=== PATIENT | female | born 1995 | race Caucasian/White ===

== ENCOUNTER 2017-07-11 12:48 | Emergency (ER) | payer BC, SELFPAY ==
[2017-07-11 12:53] VITALS: BP 121/74; PULSE 110; RESP 16; TEMP 36.3; O2SAT 100; BMI 21.4
--- NOTE | 2017-07-11 13:08 | EKG12_ITS ---
Test Reason : CP Blood Pressure : / mmHG Vent. Rate : 102 BPM Atrial Rate : 102 BPM P-R Int : 120 ms QRS Dur : 070 ms QT Int : 338 ms P-R-T Axes : 069 048 061 degrees QTc Int : 440 ms Sinus tachycardia Low voltage QRS (limb leads) Confirmed by ALLYSON ADAMS, ANDREW ([id number]), medical editor SOFI GRAJEDA ([id number]) on 07/14/2017 12:55:23 PM Referred By: JAVY Confirmed By:ANDREW VALADEZ MD
[2017-07-11 13:28] LABS: Absolute Lymphocyte Count 2.08 X10^3/ul (0.83-4.51); Absolute Neutrophil Count 4.9 X10^3/uL (2.0-7.7); Basophil# 0.07 X10^3/uL; Basophil% 0.9 % (0-1); Eosinophil# 0.06 X10^3/uL; Eosinophils% 0.8 % (0-5); Hematocrit 38.3 % (37-47); Hemoglobin 13.8 g/dl (12.0-15.0); Lymphocyte # 2.08 X10^3/ul (4.0); Lymphocyte % 26.8 % (19-41); Mean Corpuscular Hgb 31.5 pg (27.0-32.0); Mean Corpuscular Volume 87.4 fL (81-99); Mean Platelet Vol. 10.8 fl (6.2-12.0); Monocyte% 7.7 % (0-10); Neutrophil # 4.93 X10^3/uL (2.7-7.7); Neutrophil % 63.7 % (47-70); Platelet Count 298 K/mm3 (150-450); RBC Distribution Width CV 11.8 % (11.6-14.6); RBC Distribution Width SD 37.1 fl (35.1-43.9); Red Blood Count 4.38 M/mm3 (4.2-5.4); White Blood Count 7.8 K/mm3 (4.4-11.0)
[2017-07-11 13:32] LABS: POSITIVE COUNT NO; POSITIVE DIFFERENTIAL NO; POSITIVE MORPHOLOGY NO
[2017-07-11 14:14] LABS: Anion Gap 9 (5-15); BUN 10 mg/dL (7-18); BUN/Creat Ratio 11.5 RATIO (10-20); Calcium,Total 9.3 mg/dL (8.5-10.1); Chloride 106 mmol/L (98-107); Creatinine, Serum 0.87 mg/dL (0.55-1.02); EST Glomerular Filtration Rate 87 mL/min (>60); Est Glom Filt Rate - Afr Amer 105 mL/min (>60); Estimated Creatinine Clearance 88.33 ml/min; Glucose 92 mg/dL (74-106); Potassium 3.4 mmol/L (3.5-5.1); Sodium Level 140 mmol/L (136-145)
--- NOTE | 2017-07-11 14:45 | RAD_ITS ---
STUDY: X-RAY CHEST REASON FOR EXAM: Female, 21 years old. Chest pain. TECHNIQUE: Single AP portable view of the chest. COMPARISON: None. FINDINGS: Hyperinflation. The lungs are clear. There is no demonstrated pleural abnormality. Normal size heart. Normal mediastinum and wesley. Normal visualized pulmonary arteries. Normal visualized aortic arch and descending thoracic aorta. Normal visualized thoracic spine. Normal visualized ribs, clavicles, and shoulders. There is no demonstrated abnormality of the visualized soft tissue structures of the upper abdomen. RAD/Chest 1 View (Portable) IMPRESSION: Hyperinflation. The lungs are clear. Electronically Signed: Travis Pollard MD at 15:11 EST Tel [phone], Service support ,
[2017-07-11 15:51] VITALS: O2SAT 98
[2017-07-11 15:52] VITALS: BP 116/70; PULSE 82; RESP 16; O2SAT 97
--- NOTE | 2017-07-11 16:56 | ED.VISSUMM ---
- ER Visit Summary Date of Service: 07/11/17 Chief Complaint: Chest pain describes a burning sensation with apparent shortness of breath last night at onset. History of Present Illness: The patient is a 21 F with burning chest pain that she localizes to the subxiphoid epigastric area. She does complain of intermittent burning sensation when lying flat. That symptom has been present for 1-2 weeks. She denies any hematemesis, melena hematochezia. She denies history of reflux or hiatal hernia. She has not noted a difference depending on the food that she eats. Food does make it worse. She denies fever, chills night sweats. She has ocular, visual or auditory symptoms. She denies any urologic symptoms or gynecologic symptoms. She denies skin lesions. She is a non-smoker. She is presently on her menses. Physical Examination: Vital signs are remarkable for a heart rate of 116 and respiratory 22. Head is atraumatic normocephalic. Pupils are equal round reactive. Extraocular muscles are intact. TMs are pearly white with landmarks noted. Nares patent with no drainage. Posterior pharynx without erythema or exudate. Uvula is midline. There is no dysphonia or dysphasia. Trachea is midline. There is no stridor with auscultation of the neck. Heart is regular without murmur, gallop or rub. S1 and S2 are normal. Lungs are clear to auscultation with good movement of air bilaterally. She has no repeatable chest pain. Abdomen is remarkable epigastric pain. Negative Marcial sign. No paraspinal megaly. No guarding or peritoneal findings. No CVA tenderness noted. There is no asymmetry, swelling, discoloration, leg vein distention, palpable cords or tenderness along the distribution of the deep venous system. Test Results: E, chest and blood work was obtained per nurse protocol. EKG reveals a sinus tachycardia rate of 102. Chest x-ray reveals no acute process. Blood work is unremarkable. Emergency Department Course and Treatment: A call was initiated because of patient's symptoms and delay. Based on my history and physical findings it is my pleasure. Patient has reflux. She was given a GI cocktail with significant improvement. Treatment Plan: Prescription for Protonix and appropriate home-going instructions Disposition: Discharged home with spouse Impression: Chest/epigastric pain secondary to reflux This note was generated with CheckInPageation software. It may contain incorrect words, spelling, and punctuation that were not noted in review of the chart prior to signing ED Disposition - Plan for ED Patient: Disposition: Home or Assisted Living Chief Complaint: Chest Pain Instructions: ED GERD Prescriptions: Pantoprazole Sodium [Protonix] 40 mg PO DAILY #30 tab Referrals: Care Physician,No Primary [Primary Care Provider] - Martin Del Rio MD [STAFF PHYSICIAN] - 1-2 Weeks Additional Instructions: Since she did not have a primary care physician you were referred to Dr. Martin Del Rio.
[2017-07-11 17:10] VITALS: BP 118/71; PULSE 72; RESP 16; O2SAT 99
== END 2017-07-11 17:11 | disposition home or self-care (01) ==
PROVIDERS: Emergency Provider Emergency Medicine
DX: R07.89 Other chest pain (principal); R10.13 Epigastric pain; K21.9 Gastro-esophageal reflux disease without esophagitis; R00.0 Tachycardia, unspecified; R06.00 Dyspnea, unspecified
CPT/HCPCS: 71045; 80048; 84484; 85025; 93005; 99284; A4216

== ENCOUNTER 2023-10-30 11:30 | Emergency (ER) | payer OTHER, SELFPAY ==
[2023-10-30 11:31] VITALS: BP 123/89; PULSE 94; RESP 14; TEMP 36.1; O2SAT 100; BMI 25.7
--- NOTE | 2023-10-30 11:59 | EX.ED.DYSGE1 ---
HPI <JUAN FRANCISCO Tomlinson - Last Filed: 10/30/23 14:06> History of Present Illness Chief Complaint: Dizziness Narrative Narrative: Patient is a 27-year-old female with history of PCOS, anxiety, who does not take any control, presents to the emergency department with feeling of near syncope while at work today. Patient's when she woke up today she did not feel well. Patient states she had a heavier menstrual cycle than normal. Patient works at a doctor's office, had to sit down because she started getting tunnel vision and feeling sweaty. She then went home, and continue to have hot flashes. Patient states she never actually passed out however she felt she was going to. She denies any chest pain shortness of breath. Denies any recent travel, recent surgeries, blood clots in legs or lungs. Patient states she does have history of anxiety and thinks that is not helping. [facility] <JUAN FRANCISCO Tomlinson - Last Filed: 10/30/23 14:06> [facility] Medical History (Updated 10/30/23 @ 14:06 by JUAN FRANCISCO Tomlinson) Anxiety Home Medications ?Medication ?Instructions ?Recorded ?Last Taken ?Type Control Pill 1 tab PO DAILY 08/10/15 Unknown History pantoprazole 40 mg tablet,delayed 40 mg PO DAILY #30 tabs 07/11/17 Unknown Rx release Allergy/AdvReac Type Severity Reaction Status Date / Time No Known Allergies Allergy Verified 10/30/23 11:31 Social History Smoking Status: Never smoker ROS <JUAN FRANCISCO Tomlinson - Last Filed: 10/30/23 14:06> ROS ED ROS Narrative Constitutional: Negative for fever, chills, weight loss, weakness. Positive for diaphoresis Eyes: Negative for vision loss, vision change, double vision ENT: Negative for any sore throat, ear pain, congestion Cardiovascular: Negative for any chest pain, tightness, palpitations Respiratory: Negative for any cough, sputum production, hemoptysis, dyspnea, dyspnea on exertion, orthopnea Gastrointestinal: Negative for any abdominal pain, nausea, vomiting, diarrhea, constipation, blood in stool, blood in vomit : Negative for any urinary frequency, dysuria, retention, blood in urine Muscle skeletal: Negative for any neck pain, back pain Neurological: Negative for any headache, syncope, dizziness. Positive for near syncope Skin: Negative for any rashes, itching, abrasions, lacerations Psychiatric: Negative for any depression, anxiety, stress, suicidal ideation, homicidal ideation Hematologic: Negative for any excessive bruising, easy bleeding EXAM <JUAN FRANCISCO Tomlinson - Last Filed: 10/30/23 14:06> Physical Exam Narrative Exam Narrative: Vital signs reviewed. Patient appears to be anxious, vital signs are stable. HEET: Head normocephalic atraumatic, TMs clear bilaterally. Posterior pharynx is clear, moist mucous membranes. Nares clear bilaterally. Neck: Supple with no lymphadenopathy or tenderness. No signs of meningismus. Cardiac: Regular rate and rhythm no murmurs gallops or rubs, equal peripheral pulses bilaterally. Respiratory: Lungs clear to auscultation bilaterally. No chest tenderness. Abdomen: Soft, nontender, nondistended. No abdominal bruit or pulsatile masses. No hepatosplenomegaly Extremities: No peripheral edema, no signs of gross trauma or deformity. Active full range of motion of all extremities. Neuro: Cranial nerves II through XII intact, no focal neurological deficits. Skin: Clean dry and intact with no rash, purpura, petechiae, vesicles or pustules. Backs/flank: No CVA tenderness, no midline spinal tenderness, no deformity. Psych: Normal mood and affect. No SI, HI or acute psychosis. Const Vital Signs: 10/30/23 11:31 10/30/23 11:54 Temperature 97 F L Temperature Source Temporal Pulse Rate 94 Respiratory Rate 14 Respiratory Effort Normal Non-Labored Respiratory Pattern Normal Blood Pressure 123/89 H Blood Pressure Mean 100 Pulse Ox 100 Oxygen Delivery Method Room Air Positive well nourished and well developed General Appearance ED: well developed <Dr. Aubrey Puentes DO - Last Filed: 10/30/23 14:13> Physical Exam Const Vital Signs: 10/30/23 11:31 10/30/23 11:54 Temperature 97 F L Temperature Source Temporal Pulse Rate 94 Respiratory Rate 14 Respiratory Effort Normal Non-Labored Respiratory Pattern Normal Blood Pressure 123/89 H Blood Pressure Mean 100 Pulse Ox 100 Oxygen Delivery Method Room Air MDM <JUAN FRANCISCO Tomlinson - Last Filed: 10/30/23 14:06> MDM Lab Data Labs: Laboratory Results - last 24 hr 10/30/23 10/30/23 12:15 13:15 Sodium 137 Potassium 3.4 L Chloride 106 Carbon Dioxide 23.0 Anion Gap 8 BUN 8 Creatinine 0.79 Estim Creat Clear Calc 105.24 Est GFR (MDRD) Af Amer 111 Est GFR (MDRD) Non-Af 92 BUN/Creatinine Ratio 10.1 Glucose 96 Calcium 9.4 Troponin I High Sens < 3 L Serum , Qual NEGATIVE Urine Color Yellow Urine Clarity Clear Urine pH 8.0 Ur Specific [place] 1.010 Urine Protein Negative Urine Glucose (UA) Normal Urine Ketones 15 H Urine Occult Blood 50 H Urine Nitrite Negative Urine Bilirubin Negative Urine Urobilinogen Normal Ur Leukocyte Esterase Negative Urine RBC 0-5 SEEN Urine WBC 0 SEEN Ur Squamous Epith Cells 0 SEEN Urine Bacteria 0 SEEN Urine Mucus 0 SEEN Radiography Diagnostic Testing: Clinical Impression(s) from Imaging Studies Chest X-Ray 10/30/23 12:45 IMPRESSION: No acute abnormalities present. Electronically Signed: Travis Pollard MD at 13:09 EDT , EKG Normal sinus rhythm: Attestation: I personally reviewed and interpreted this EKG as follows: Interpretation: Sinus Rhythm Comments: Normal sinus rhythm, rate 92 bpm, [place] interval 126 ms, QRS duration 76 ms, no acute ST elevation, no acute infarct noted. Treatment and Re-Evaluation :: Differential diagnosis includes however is not limited to: , anxiety, near syncope, arrhythmia, pulmonary embolus, ACS or TX Patient appears to be in no obvious distress, patient's vital signs are stable, patient appears nontoxic. Presenting to the emergency department with near syncope. Patient is PERC negative, I have low suspicion for any pulmonary embolus. Patient's chest x-ray shows no acute abnormality. Patient's laboratory values showed a normal CBC which I saw on her iPhone. Patient's chemistries were unremarkable, patient's not , urinalysis was negative for infection, patient's troponin was negative. At this time, I do believe the patient suffering more of a vagal response. I have low suspicion for any acute ACS TX or PE. EKG was unremarkable. I do believe the patient be stable for discharge. Patient will receive 0.5 mg of Ativan here. She will follow-up outpatient. If she gets worse she will return here. All questions answered stable for discharge. <Dr. Aubrey Puentes, DO - Last Filed: 10/30/23 14:13> [facility] History & Record Review Discussion w/independent historian: Patient and Significant other Lab Data Attestation: I reviewed the patient's lab results. Labs: Laboratory Results - last 24 hr 10/30/23 10/30/23 12:15 13:15 Sodium 137 Potassium 3.4 L Chloride 106 Carbon Dioxide 23.0 Anion Gap 8 BUN 8 Creatinine 0.79 Estim Creat Clear Calc 105.24 Est GFR (MDRD) Af Amer 111 Est GFR (MDRD) Non-Af 92 BUN/Creatinine Ratio 10.1 Glucose 96 Calcium 9.4 Troponin I High Sens < 3 L Serum , Qual NEGATIVE Urine Color Yellow Urine Clarity Clear Urine pH 8.0 Ur Specific [place] 1.010 Urine Protein Negative Urine Glucose (UA) Normal Urine Ketones 15 H Urine Occult Blood 50 H Urine Nitrite Negative Urine Bilirubin Negative Urine Urobilinogen Normal Ur Leukocyte Esterase Negative Urine RBC 0-5 SEEN Urine WBC 0 SEEN Ur Squamous Epith Cells 0 SEEN Urine Bacteria 0 SEEN Urine Mucus 0 SEEN Radiography Diagnostic Testing: Clinical Impression(s) from Imaging Studies Chest X-Ray 10/30/23 12:45 IMPRESSION: No acute abnormalities present. Electronically Signed: Travis Pollard MD at 13:09 EDT Reading Location ID and State: [id number] , Service support , Treatment and Re-Evaluation :: Differential diagnosis includes however is not limited to: , anxiety, near syncope, arrhythmia, pulmonary embolus, ACS or TX Patient appears to be in no obvious distress, patient's vital signs are stable, patient appears nontoxic. Presenting to the emergency department with near syncope. Patient is PERC negative, I have low suspicion for any pulmonary embolus. Patient's chest x-ray shows no acute abnormality. Patient's laboratory values showed a normal CBC which I saw on her iPhone. Patient's chemistries were unremarkable, patient's not , urinalysis was negative for infection, patient's troponin was negative. At this time, I do believe the patient suffering more of a vagal response. I have low suspicion for any acute ACS TX or PE. EKG was unremarkable. I do believe the patient be stable for discharge. Patient will receive 0.5 mg of Ativan here. She will follow-up outpatient. If she gets worse she will return here. All questions answered stable for discharge. I have personally performed a face to face assessment of the patient and have reviewed the NIRU Note. I performed a substantive portion of the visit including all aspects of the following. My pisano findings include: History is 27-year-old female states that she has been having intermittent episodes lasting about 15 seconds where she becomes very hot has tingling in extremities and feels like she is going to have a syncopal episode. She denies any chest pain or dyspnea. She denies any palpitations. This is never happened to her before. She denies any vomiting diarrhea nausea or pain/cramping. This happened at work she had a CBC drawn which she has results of. She is not significantly anemic. Patient has been taking TheraFlu but does not know exactly what all is in it/which style. Exam is patient is tachycardic. She appears anxious. Otherwise has a fairly benign exam Medical Decison Making EKG shows a sinus rhythm. She has had no events on the monitor. She has stated that she has had several episodes while she has been here. My independent interpretation of the chest x-ray is no acute process. Patient will be discharged home. For her anxiety give her a small amount of Ativan here. I did recommend evaluating the TheraFlu at home and seeing if any of the components could potentially have's some of the side effects with them. Patient return if worsening or concerns Discharge Plan Triage Chief Complaint: Dizziness ED Midlevel Provider: Olvin Garcia ED Provider: Aubrey Puentes Dx/Rx/DC Orders Clinical Impression: Near syncope, Anxiety Instructions: Dizziness Fainting Causes, ED Near-Fainting, Uncertain Cause Prescriptions: No Action Control Pill 1 tab PO DAILY pantoprazole 40 MG tablet 40 mg PO DAILY Qty: 30 0RF Primary Care Provider: Rolando Caldwell Referrals: Care Physician,No Primary [Non-Staff] - Activity Restrictions/Additional Instructions: Please follow-up. For any worsening symptoms please return here. Print Language: Bulgarian Disposition Disposition: Home, Self Care
[2023-10-30] MEDS: 0.9% Normal Saline (1000mL) 1,000 ML 999 ML IV (12:36)
[2023-10-30 12:44] LABS: Internal QC Validated? YES +Cl - CLEAR BKGD; Pregnancy, Serum, hCG Quali. NEGATIVE Negative
--- NOTE | 2023-10-30 12:45 | RAD_ITS ---
STUDY: X-RAY CHEST REASON FOR EXAM: Female, 27 years old. Heart and cold sweats. Dizziness. TECHNIQUE: PA and lateral views of the chest. COMPARISON: Comparison is made with prior study May 10, 2018. FINDINGS: EKG electrodes are seen. The lungs are clear and expanded. Scattered calcified granulomas. There is no demonstrated pleural abnormality. Normal size heart. Normal mediastinum and wesley. Normal visualized pulmonary arteries. Normal visualized aortic arch and descending thoracic aorta. Normal visualized thoracic spine. Normal visualized ribs, clavicles, and shoulders. There is no demonstrated abnormality of the visualized soft tissue structures of the upper abdomen. RAD/Chest PA and Lateral IMPRESSION: No acute abnormalities present. Electronically Signed: Travis Pollard MD at 13:09 EDT ,
[2023-10-30 12:47] LABS: Anion Gap 8 (5-15); BUN 8 mg/dL (7-18); BUN/Creat Ratio 10.1 RATIO (10-20); Calcium,Total 9.4 mg/dL (8.5-10.1); Chloride 106 mmol/L (98-107); Creatinine, Serum 0.79 mg/dL (0.55-1.02); EST Glomerular Filtration Rate 92 mL/min (>60); Est Glom Filt Rate - Afr Amer 111 mL/min (>60); Estimated Creatinine Clearance 105.24 ml/min; Glucose 96 mg/dL (74-106); Potassium 3.4 mmol/L (3.5-5.1); Sodium Level 137 mmol/L (136-145); Troponin-I HS < 3 pg/mL (3.0-54.0)
[2023-10-30 13:19] LABS: Bacteria 0 SEEN /hpf (None Seen); Mucous, Urine 0 SEEN /hpf (<or=2+); Squamous Epithelial Cells - UA 0 SEEN /hpf (5-10); White Blood Cells 0 SEEN /hpf (0-5)
[2023-10-30 13:26] LABS: Color, Urine Yellow (Yellow); Glucose, Dipstick Normal (Normal); Ketone-Dipstick 15 mg/dl (Negative); Leukocyte Esterase-Dipstick Negative /ul (Negative); Nitrite-Dipstick Negative (Negative); Occult Blood-Urine 50 /ul (Negative); Protein-Dipstick Negative (Negative); Urine Bilirubin Dipstick Negative (Negative); Urine Clarity Clear (Clear); Urine Urobilinogen Normal (Normal)
[2023-10-30 13:31] VITALS: BP 123/77; PULSE 93; RESP 13; O2SAT 98
[2023-10-30 13:33] LABS: Red Blood Cells-Urine 0-5 SEEN /hpf (0-5)
[2023-10-30] MEDS: LORazepam 0.5 MG Tablet PO (14:35)
[2023-10-30 14:36] VITALS: BP 119/85; PULSE 100; RESP 16; TEMP 36.1; O2SAT 98
== END 2023-10-30 14:41 | disposition home or self-care (01) ==
PROVIDERS: Nurse Practitioner; Emergency Provider Emergency Medicine; PCP Student in an Organized Health Care Education/Training Program; Visit Provider Emergency Medicine
DX: R42 Dizziness and giddiness (principal); R55 Syncope and collapse; F41.9 Anxiety disorder, unspecified
CPT/HCPCS: 71046; 80048; 81001; 84484; 84703; 93005; 96360; 96361; 99284; J7030; A4216

== ENCOUNTER → 2024-06-10 | Outpatient (CLI) | payer OTHER, SELFPAY ==
--- NOTE | 2024-06-10 12:00 | RAD_ITS ---
STUDY: HYSTEROSALPINGOGRAM. REASON FOR EXAM: Female, 28 years old. ENDOMETRIOSIS FLUOROSCOPY TIME (if supplied): ( 44 seconds ) minutes/seconds. 2 images were submitted. TECHNIQUE: Contrast was injected. COMPARISON: None. FINDINGS: Contrast is seen within the vagina. No opacification of the uterus or the fallopian tubes. RAD/Salpingogram IMPRESSION: No opacification of the uterus or the fallopian tubes. Electronically Signed: Travis Pollard MD at 13:43 EST ,
--- NOTE | 2024-06-10 12:20 | OP.PCM_ITS ---
Operative Report (Standard) Operative Information Date of Procedure: 06/10/24 Pre-Operative Diagnosis: infertility, endometriosis Post-Operative Diagnosis: same, bilateral tubal occlusion Surgery/Procedure Performed: HSG pipe organ tuner and repairer: No Type of Anesthesia: None Procedure Start Time: 12:03 Procedure Stop Time: 12:08 Select all DRAINS/GRAFTS/IMPLANTS that apply: None Estimated Blood Loss: <5cc Specimen collected: No Description of surgery: speculum placed-cervix cleaned with Betadine. Anterior lip the cervix was grasped with the tenaculum. Unable to place the HSG catheter. Cervix was stenotic. At this time the uterine sound was placed unable to penetrate through the cervical os. The tenaculum was then placed on the posterior lip of the cervix and at this time I was able to dilate the cervical os. The catheter was then placed balloon was insufflated. Dye was injected however under fluoroscopy no evidence of spillage into the peritoneal cavity was evident indicating bilateral tubal occlusion. Discussed with the patient recommend consultation with reproductive endocrinology. Surgical Findings: bilateral tubal occlusion Complications Complications: No Admit VTE Documentation VTE Present on Admission: No
== END | disposition home or self-care (01) ==
LOC: RAD 11:41
PROVIDERS: PCP Student in an Organized Health Care Education/Training Program; Referring Provider Obstetrics & Gynecology; Visit Provider Obstetrics & Gynecology
DX: N80.9 Endometriosis, unspecified (principal); N97.9 Female infertility, unspecified; E28.2 Polycystic ovarian syndrome
CPT/HCPCS: 58340; 74740; Q9967

== ENCOUNTER → 2024-07-08 | Outpatient (CLI) | payer OTHER, SELFPAY ==
--- NOTE | 2024-07-08 07:47 | RAD_ITS ---
EXAM: SALPINGOGRAM CLINICAL HISTORY: Infertility. COMPARISON: None. TECHNIQUE: The reflector driller and deburrer performed the hysterosalpingogram. FINDINGS: The uterus is unremarkable. There is patency of both fallopian tubes with free spill bilaterally. RAD/Salpingogram IMPRESSION: Patency of both fallopian tubes with free spill bilaterally. Reading Location: [facility]
--- NOTE | 2024-07-08 09:11 | OP.PCM_ITS ---
Operative Report (Standard) Operative Information Date of Procedure: 07/08/24 Pre-Operative Diagnosis: infertility, stenotic cervix Post-Operative Diagnosis: same, patent bilateral fallopian tubes Surgery/Procedure Performed: HSG coat hanger shaper machine operator: No Type of Anesthesia: None Procedure Start Time: 08:00 Procedure Stop Time: 08:20 Select all DRAINS/GRAFTS/IMPLANTS that apply: None Estimated Blood Loss: 0 Specimen collected: No Description of surgery: Speculum placed, anterior lip of the cervix grasped. Endocervical canal attempted to be dilated however it kept bending the plastic sound. Eventually I was able to get the cervical os finder to dilate through the endocervical canal it has a rotation to the patient's right. Once I was able to place that the HSG catheter was placed without difficulty. The HSG was performed under fluoroscopy with the radiologist present. Bilateral fallopian tubes were both patent. pt tolerated well Surgical Findings: bilateral fallopian tubes patent Complications Complications: No Admit VTE Documentation VTE Present on Admission: No VTE Pharm Prophylaxis ordered?: No
== END | disposition home or self-care (01) ==
LOC: RAD 07:47
PROVIDERS: PCP Student in an Organized Health Care Education/Training Program; Referring Provider Obstetrics & Gynecology; Visit Provider Obstetrics & Gynecology
DX: N97.9 Female infertility, unspecified (principal)
CPT/HCPCS: 58340; 74740; Q9967

== ENCOUNTER 2025-03-20 19:38 | Inpatient (IN) | payer OTHER, SELFPAY ==
[2025-03-20 19:15] VITALS: BP 113/68; PULSE 102; BMI 33.3
[2025-03-20 19:22] VITALS: RESP 20; TEMP 37.3; O2SAT 97
[2025-03-20 19:23] VITALS: PULSE 113; O2SAT 97
--- NOTE | 2025-03-20 20:06 | PCM.HP.OB ---
HPI - General General Date of Admission: 03/20/25 Date of Service: 03/20/25 Chief Complaint: Induction of labor HPI Narrative JACKELYN CARO, is a 29 F who presents induction of labor for cholestatsis. GBS negative Maternal Data Information Final FRANCO: 04/09/25 Gestational age: 37+1 [facility] Medical History Anxiety Home Medications ?Medication ?Instructions ?Recorded ?Last Taken ?Type Control Pill 1 tab PO DAILY 08/10/15 Unknown History Held on 03/20/25. Instructions: Order Completed aspirin 81 mg tablet 81 mg PO DAILY pre-eclampsia 03/20/25 03/19/25 21:00 History 81 mg pantoprazole 20 mg tablet,delayed 20 mg PO DAILY GERD 03/20/25 03/19/25 21:00 History release (Protonix) 20 mg vit no.95-ferrous 1 tab PO DAILY vitamin 03/20/25 03/19/25 21:00 History fumarate 28 mg-folic acid 800 mcg 2 tabs tablet () sertraline 25 mg tablet (Zoloft) 75 mg PO Q24H depression/anxiety 03/20/25 03/19/25 21:00 History 75 mg ursodiol 300 mg capsule 300 mg PO BID cholestasis 03/20/25 03/19/25 21:00 History 300 mg Allergy/AdvReac Type Severity Reaction Status Date / Time No Known Allergies Allergy Verified 10/30/23 11:31 Social History Smoking Status: Never smoker History 1 Elective abortions Hx Para 0 Spontaneous abortions Hx # Term Pregnancies Ectopic pregnancies Hx # Pregnancies Multiple births # of living children NST FHR Rate Baby A Baseline: 145 Variability:: Moderate Accelerations:: 15 x 15 Decelerations:: None NST Reactive:: Yes Uterine Activity:: irregular ROS Constitutional Constitutional: Denies fatigue, fever(s) or malaise Eyes Eyes: Denies change in vision ENT HEENT: Denies dizziness or headache(s) Cardiovascular Cardiovascular: Denies chest pain, dyspnea or lightheadedness Respiratory/Chest Respiratory/Chest: Denies cough or dyspnea Gastrointestinal Gastrointestinal: Denies change in bowel habits Genitourinary Genitourinary: Denies burning urination or genital lesions Integumentary Integumentary: Denies rash Neurologic Neurologic: Denies confusion, dizziness, headache(s), numbness or weakness Vital Signs Vital Signs Vital Signs: 03/20/25 19:15 03/20/25 19:15 03/20/25 19:22 Temperature Temperature Source Temporal Pulse Rate 102 H Respiratory Rate Blood Pressure 113/68 BP Systolic 113 BP Diastolic 68 Pulse Ox 03/20/25 19:22 03/20/25 19:22 03/20/25 19:22 Temperature 99.2 F H Temperature Source Pulse Rate Respiratory Rate 20 H Blood Pressure BP Systolic BP Diastolic Pulse Ox 97 03/20/25 19:23 03/20/25 19:23 Temperature Temperature Source Pulse Rate 113 H Respiratory Rate Blood Pressure BP Systolic BP Diastolic Pulse Ox 97 Weight Weight: 91 kg Body Mass Index (BMI) 33.3 Physical Exam Const alert and no apparent distress General Appearance: cooperative HEENT normocephalic Resp normal respiratory effort Cardio regular rate GI soft to palpation GI Narrative: gravid, nontender, appropriate for gestational age Extremity no calf tenderness General Extremity: edema Skin no wounds Rashes: No rashes noted Psych activity/motor behavior normal Labs Labs Labs: Hct, (37-47) 38.3 % Hgb, (12.0-15.0) 13.8 g/dl Assessment & Plan (1) 37 weeks gestation of : (2) Cholestasis during in third trimester: PLAN: Plan Cytotec/velasquez indcution of labor
[2025-03-20] MEDS: 0.9% Saline Lock 10 ML Syringe IV (20:10)
[2025-03-20 20:29] LABS: Hematocrit 33.4 % (37-47); Hemoglobin 11.6 g/dL (12.0-15.0); Immature Granulocytes Count 0.180 X10^3/uL (0.0-0.0); Mean Corp Hgb Conc 34.7 g/dL (32-36); Mean Corpuscular Volume 86.5 fL (81-99); Mean Platelet Vol. 10.3 fl (6.2-12.0); NRBC Flagged by Analyzer 0 % (0-5); Platelet Count 250 K/mm3 (150-450); RBC Distribution Width CV 12.2 % (11.6-14.6); RBC Distribution Width SD 38.5 fl (35.1-43.9); Red Blood Count 3.86 M/mm3 (4.2-5.4); White Blood Count 13.0 K/mm3 (4.4-11.0)
[2025-03-20 21:01] LABS: Syphilis Antibodies Nonreactive (Nonreactive)
[2025-03-20 21:26] VITALS: BP 115/61; PULSE 82; RESP 20; TEMP 37.1; O2SAT 98
[2025-03-20 21:32] VITALS: PULSE 86; O2SAT 97
[2025-03-21] VITALS (56 sets, daily range): BP systolic 94–137; BP diastolic 51–84; PULSE 75–101; RESP 16–18; TEMP 36.5–37.3; O2SAT 96–98
[2025-03-21] MEDS: 0.9% Normal Saline Single 100 ML IV.SOLN. INTRA-UTER (07:28)
--- NOTE | 2025-03-21 07:36 | PCM.PN.OB ---
Subjective Subjective Rolon bulb placed. 1/60/-1. Soft and midposition. Objective Data Objective Data Vital Signs: Vital Signs Temp Pulse Resp BP Pulse Ox 99.2 F H 77 18 104/54 L 98 03/21/25 04:30 03/21/25 04:30 03/21/25 04:30 03/21/25 04:30 03/21/25 04:30 Weight: 91 kg Body Mass Index (BMI) 33.3 Intake & Output: Intake and Output for Last 24 Hours 03/19/25 03/20/25 03/21/25 23:59 23:59 23:59 Output Total 300 / 300 400 / 400 Balance -300 / -300 -400 / -400 Lab / Micro Data 03/20/25 20:10 Labs: Laboratory Results - last 24 hr 03/20/25 20:10: WBC 13.0 H, RBC 3.86 L, Hgb 11.6 L, Hct 33.4 L, MCV 86.5, MCH 30.1, MCHC 34.7, RDW Std Deviation 38.5, RDW Coeff of Erwin 12.2, Plt Count 250, MPV 10.3, Immature Gran % (Auto) 1.400 H, Neut % (Auto) 68.3, Lymph % (Auto) 21.5, [place] % (Auto) 8.0, Eos % (Auto) 0.4, Baso % (Auto) 0.4, Absolute Neuts (auto) 8.9 H, Absolute Lymphs (auto) 2.78, Nucleated RBC % 0, Syphilis Total Ab Nonreactive, Blood Type A POSITIVE, Antibody Screen NEGATIVE NST FHR Rate Baby A Baseline: 145 Variability:: Moderate Accelerations:: 15 x 15 Decelerations:: None FHR Category:: Category I Assessment & Plan (1) Cholestasis during in third trimester: (2) 37 weeks gestation of : PLAN: Plan Rolon in Pitocin prn epidural prn
[2025-03-21] MEDS: LACTATED RINGERS 500 ML 999 ML IV ×2 (09:07→09:37)
[2025-03-21] MEDS: 0.9% Saline Lock 10 ML Syringe IV ×2 (09:13→21:50)
[2025-03-21] MEDS: Lactated Ringers 1,000 ML 50 ML IV (10:07)
[2025-03-21] MEDS: Lactated Ringers 1,000 ML 999 ML IV (11:24)
--- NOTE | 2025-03-21 12:11 | PCM.PN.BLA ---
Progress Note pt seen at bedside - VE performed /-2 AROM performed- clear fluid scant amount. IFM and IUPC placed. will start pitocin.
[2025-03-21] MEDS: fentaNYL-bupivacaine (epidural) 100 ML BAG EPIDURAL (12:33)
[2025-03-21] MEDS: Oxytocin 15 Units/NS 250ml 15 UNITS/250 ML IV.SOLN 2 UNITS IV (13:35)
--- NOTE | 2025-03-21 17:01 | PCM.PN.BLA ---
Progress Note patient pushing effectively- head +3 station. anticipate
--- NOTE | 2025-03-21 18:12 | EX.PCM.OBVAG ---
Vaginal Delivery Maternal Presentation Maternal Presentation: Medically Indicated Induction Maternal Presentation: 37 weeks, cholestasis of Type of Induction: Pitocin, Rolon Bulb and Cytotec Vaginal Delivery Information Procedure Performed: Spontaneous Vaginal Delivery Surgeon/Practitioner: Ijeoma Bernal Date of Procedure: 03/21/25 Pre-Procedure Diagnosis: 37 weeks, cholestasis of Post-Procedure Diagnosis: same, live male infant Type of anesthesia: Epidural Estimated Blood Loss: 100 Time of Delivery: 18:03 Findings Description of procedure: Patient progressed to fully dilated. Good maternal pushing efforts delivered the head. Loose nuchal x 1 was noted and reduced prior to delivery of the anterior and posterior shoulders. Once the shoulders delivered the body delivered without complication. The infant was placed on the mother's chest for immediate skin to skin. Delayed cord clamping was performed. Cord was clamped and cut. Pitocin was started and placenta was delivered intact without complication. Presentation: Vertex Amniotic Membrane Rupture Type: Artificial Amniotic Fluid Description: Clear Placental Delivery Description: Spontaneous Placenta Disposition: [facility] Specimen collected: No Cord Vessel Description: 3 Vessels Cord Entanglement: Around neck x 1, loose Nuchal Cord Compression: With compression A Gender: Male (1 minute): 8 (5 minute): 9 Delayed Cord Clamping: Yes Hospital Supervisor sharepoint specialist: No Post Vaginal Deli Medications given after delivery: IV Pitocin Episiotomy Description: None Laceration: None Complication Complications: No
[2025-03-21] MEDS: Oxytocin 15 Units/NS 250ml 15 UNITS/250 ML IV.SOLN 83 UNITS IV (18:36)
[2025-03-22] VITALS (9 sets, daily range): BP systolic 100–119; BP diastolic 58–77; PULSE 73–88; RESP 14–16; TEMP 36.4–36.9; O2SAT 84–97
--- NOTE | 2025-03-22 13:23 | PCM.PN.OB ---
Subjective Subjective Denies complaints Objective Data Objective Data Vital Signs: Vital Signs Temp Pulse Resp BP Pulse Ox O2 Del Method 98 F 75 16 115/77 97 Room Air 03/22/25 12:35 03/22/25 12:35 03/22/25 12:35 03/22/25 12:35 03/22/25 03:21 03/22/25 03:21 Oxygen Delivery Method Room Air Weight: 200 lb 9.93 oz Body Mass Index (BMI) 33.3 Intake & Output: Intake and Output for Last 24 Hours 03/20/25 03/21/25 03/22/25 23:59 23:59 23:59 Intake Total 3499.00 / 3499.00 Output Total 300 / 300 1999 / 1999 500 / 500 Balance -300 / -300 1499.00 / 1499.00 -500 / -500 Lab / Micro Data 03/20/25 20:10 Physical Exam Const alert, oriented x3 and no apparent distress HEENT normocephalic GI soft to palpation, non-tender and non-distended GI Narrative: fundus firm, mid & below umbilicus Extremity normal to inspection and no calf tenderness Assessment & Plan (1) Cholestasis during in third trimester: COMMENT: PPD#1 (2) 37 weeks gestation of : PLAN: Plan D/c home per patient request
--- NOTE | 2025-03-22 13:24 | PCM.DC.SUM ---
Providers Date of Admission: 03/20/25 Primary Care Physician: Dr. Rolando Caldwell DO Reason For Visit: VAG Diagnosis Discharge Diagnosis (1) Cholestasis during in third trimester: Status: Acute Code(s): O26.643 - Intrahepatic cholestasis of , third trimester (2) 37 weeks gestation of : Status: Acute Code(s): Z3A.37 - 37 weeks gestation of Plan D/c home per patient request Medications at Discharge Home Medications pantoprazole 20 mg tablet,delayed release (Protonix) 20 mg PO DAILY GERD 03/20/25 vit no.95-ferrous fumarate 28 mg-folic acid 800 mcg tablet () 1 tab PO DAILY vitamin 03/20/25 sertraline 25 mg tablet (Zoloft) 75 mg PO Q24H depression/anxiety 03/20/25 acetaminophen 500 mg tablet 1,000 mg (2 x 500 mg) PO Q6H PRN PRN Pain 1-10 Or Fever #0 tabs 03/22/25 ibuprofen 600 mg tablet 600 mg PO Q6H PRN PRN Pain Score 1-10 #0 tabs 03/22/25 Hospital Course Operations None Procedures None Summary of Care Provided Minutes Spent on Discharge: 15 Weight / BMI Weight Weight: 200 lb 9.93 oz Body Mass Index (BMI) 33.3 ABG / Lab / Microbiology Data 03/20/25 20:10 D/C Instructions Discharge Activity: May Shower May resume sexual activity in: 6 weeks Weight Bearing Status: Weight bearing as tolerated Call your doctor if you observe: Fever of 101 or Higher, Coldness, Increased Pain, Change in Color, Inability to urinate, Inability to have a bowel movement, Using more than 1 pad per hour, Shortness of breath, Dizziness, Fainting spells, Chest pain, Increased palpitations (irregular heartbeat), Calf discomfort and Uncontrolled pain DC O2, CPAP, BIPAP Needs Home O2 Discharge instructions: No Please Follow Up With: Shad Machado MD When: Follow up in 2 and 6 weeks for visits. Meaningful Use Info Meaningful Use Meaningful Use Diagnoses (Choose all that apply): None applicable Discharge Plan Admission Admit Date/Time: 03/20/25 19:38 Primary Reason for Your Visit: Vaginal delivery Attending Provider: Ijeoma Bernal Primary Care Provider: Rolando Caldwell Discharge Orders/Prescriptions Prescriptions: New acetaminophen 500 mg Tablet 1,000 mg PO Q6H PRN PRN (Reason: Pain 1-10 Or Fever) Qty: 0 0RF ibuprofen 600 mg Tablet 600 mg PO Q6H PRN PRN (Reason: Pain Score 1-10) Qty: 0 0RF Continued sertraline [Zoloft] 25 mg tablet 75 mg PO Q24H pantoprazole [Protonix] 20 mg tablet,delayed release (DR/EC) 20 mg PO DAILY PNV no.95-ferrous fumarate-FA [] 28 mg iron- 800 mcg tablet 1 tab PO DAILY Discontinued Control Pill 1 tab PO DAILY aspirin 81 mg tablet 81 mg PO DAILY ursodiol 300 mg capsule 300 mg PO BID Referrals / Follow Up: Rolando Caldwell DO [Primary Care Provider, Medical] Disposition Disposition (needs filled in before D/C Order can be placed): Home, Self Care
--- NOTE | 2025-03-24 08:36 | CASEMGMT ---
Social Work Assessment Labor and Delivery Unit Patient Address: [place] [address] Phone number: [phone] Date of Referral: 03/20/28 Time of Referral:?[id number] Referred By: Dr. Padron Date of Intervention: ??03/22/25 Time of Intervention:? 1500 Reason for Referral:? [facility] outpatient heroin treatment program [id number], MOB mental health Sw completed chart review and acknowledges social work consult. Sw presented to bedside and introduced self to mother of baby, GABO- Fernando, and father of baby, MAYE- Amaury. Sw explained reason for sw involvement and completed psychosocial assessment. History obtained from: medical records, MOB and FOB Household composition: Currently residing in the family home is MOB, FOB and baby when ready for discharge. Parents report their home is safe and secure. Patient's parent/guardian status:? Parents state that they went to the same high school, and knew each other but did not start dating until they had graduated. They have been together for 12 years and are . [facility] baby is first baby for both parents. No concerns reported of domestic violence, or intimate partner violence. ? Medical History: ?GABO is 29 year old female who is 2, para 0- now 1 following labor and delivery of . GABO received routine care during with [facility]. GABO presented to hospital for induction of labor at 37 weeks gestation. Baby was born via vaginal delivery at 37 weeks gestation. Baby boy, named Brady, was born weighing 6lb 11oz and had apgars of 8 and 9 at one and five minutes of life, respectfully. GABO is breast feeding and states that it is going well, baby will be followed by Dr. Chavarria for pediatric care. Educational Status:? Both parents graduated from high school and MOB obtained her medical assistance certificate. 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 Infant Supplies:??All necessary baby supplies obtained, including: car seat, safe sleep space, clothes, diapers and wipes. Childcare/Caregiver(s):? MOB will be the primary caregiver to baby along with FOB. When both parents are working they have family members who are able to provide childcare. Transportation:??Both parents have their drivers license and reliable means of transportation, no barriers. Programs/Agencies Involved: ?Parents are over income for community resources that provide financial assistance. ?? Children Services/Legal Issues:?No prior involvement with children services, no issues or concerns warranting referral to be made at this time. ?? Behavioral Health Issues: ??Mental Health History:?MAYE reports that he does have a mental health history, he has been diagnosed with depression/ anxiety. He is prescribed Zolofyt by his primary care doctor. GABO has also been diagnosed with anxiety and depression and is also prescribed Zoloft by her wool merchant. Parents report that they are not currently connected to any community mental health services because they are at the best place they have ever been in their lives, but if they feel as though they are struggling they have resources that they can get connected to. ?? Substance Use History:?MAYE states that he had a football injury in high school where he tore his ACL and it completely ruined his football career, which also took away his college scholarships. He was prescribed OxyContin and got addicted. MAYE states that from there his addiction led from one drug to another, and ultimately he was using heroin. He sought inpatient treatment at [facility] [place] in 2011 and continued outpatient treatment through 2016. MAYE states that he has been sober since then and has not had cravings for years. He has no desire or interest to ever go back to living that kind of life or lifestyle. He states that he is so happy and thankful to be a dad. Davide commended MAYE for the work he put in for bettering himself and his life. GABO denies substance use prior to and during . Family History:??MAYE states that addiction does run in his family, starting with his grandpa and his siblings. MAYE states that his brother is also an addict. ??? Drug Screens: ??No drug screens observed while completing chart review. Family/Social Stressors:? Parents deny any issues or concerns. GABO states that their life looks really good compared to where things used to be. No issues, concerns or stressors reported. Support Systems: GABO states that both sides of their immediate family are supportive. Depression/Shaken Baby/Safe Sleeping:? Davide educated parents on signs and symptoms of baby blues and mood and anxiety disorders to be mindful of going into this period. GABO states that she has heard these terms and has several family members and friends who have experienced them and have talked openly to her about their experiences. MOB states that she knows she can turn to them for guidance and support if she were to struggle. MOB states that she felt really good during . MOB also reports to feeling really good since delivery, denying anxiety, feeling down, sad or tearful. FOB states that if MOB were to have any difficulties he would definitely recognize that and would know how to help and support her. MOB says she does not have a poker face, and FOB can always read her and then tells her to open up and let him know what is wrong. Sw encouraged parents to utilize healthy and safe coping mechanisms, spend time outside when able, or sit in the sunshine. Sw educated parents on shaken baby prevention and ABCs of safe sleep, parents express understanding. ASSESSMENT:? MOB and baby admitted following labor and delivery. MOB with mental health history and FOB with significant substance use history, currently in sobriety since 2011. Parents express to have a lot of supports in place and have obtained all necessary baby items. MOB and FOB both present throughout assessment, both talkative and conversation flowed easily and naturally. FOB sitting comfortably holding baby lovingly and attentively. MOB was talkative and receptive to meeting with sw. FOB was observed to be open regarding his substance use history. PLAN:? No other services requested or indicated. MOB and baby to be discharged when medically ready. Parents were provided literature regarding: signs and symptoms of baby blues and mood and anxiety disorders, Help Me Grow, shaken baby prevention, ABCs of safe sleep and a list of county resources that are available for them should any needs present themselves. Monica Haider, SCHOOL RESOURCE OFFICER, MECHANICAL SOUND TECHNICIAN
== END 2025-03-22 19:35 | disposition home or self-care (01) | DRG 807 ==
PROVIDERS: Obstetrics & Gynecology; Admitting Provider Obstetrics & Gynecology; PCP Student in an Organized Health Care Education/Training Program; Visit Provider Obstetrics & Gynecology
DX: O26.643 Intrahepatic cholestasis of pregnancy, third trimester (principal); Z37.0 Single live birth; O99.344 Other mental disorders complicating childbirth; F41.9 Anxiety disorder, unspecified; O69.81X0 Labor and delivery complicated by cord around neck, without compression, not applicable or unspecified; Z3A.37 37 weeks gestation of pregnancy; Z79.899 Other long term (current) drug therapy
CPT/HCPCS: 59025; 59050; 85025; 86780; 86850; 86900; 86901; 99221; A4216; G0378; J2405